=== PATIENT | male | born 1990 | race African-American/Black ===

== ENCOUNTER 2018-07-05 20:06 | Emergency (ER) | payer OTHER ==
[2018-07-05] MEDS ORDERED: KETOROLAC 30 MG/ML VIAL (J1885) As Ordered (22:17)
[2018-07-05] MEDS: KETOROLAC 60 MG/2 ML VIAL (J1885) IM (22:21)
== END 2018-07-05 22:36 | disposition home or self-care (01) ==
LOC: M ED 20:06
DX: S80.11XA Contusion of right lower leg, initial encounter (principal); W19.XXXA Unspecified fall, initial encounter; Y92.830 Public park as the place of occurrence of the external cause; Z87.828 Personal history of other (healed) physical injury and trauma
CPT/HCPCS: J1885

== ENCOUNTER 2018-07-12 14:12 | Emergency (ER) | payer OTHER | END 2018-07-12 16:15 | disposition home or self-care (01) | LOC: M ED 14:12 | DX: S62.307A Unspecified fracture of fifth metacarpal bone, left hand, initial encounter for closed fracture (principal); W18.39XA Other fall on same level, initial encounter; Y92.018 Other place in single-family (private) house as the place of occurrence of the external cause | CPT/HCPCS: 73130 ==

== ENCOUNTER 2019-01-13 10:06 | Emergency (ER) | payer OTHER ==
[~2019-01-13] VITALS: Ht 177.8 cm; Wt 86.4 kg
[~2019-01-13 10:06] MED LIST: IBUP-1022 PO
[2019-01-13 10:15] VITALS: BP 128/79
--- NOTE | 2019-01-13 10:57 | REP ---
Clinical: Trauma. Technique: AP, lateral, bilateral oblique and sunrise views of the right knee. Comparison: 07/05/2018. Findings: Osseous structures, joint spaces, and surrounding soft tissues are relatively normal and stable. There is no evidence for acute fracture or dislocation. 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 Small calcification is also identified along the medial femoral condyle on frontal radiograph which remain stable. Impression: Chronic stable changes possibly related to old injuries. No acute fracture dislocation. Electronically Signed by Jose Cruz Hernandes MD 01/13/2019 10:49 A
== END 2019-01-13 12:15 | disposition home or self-care (01) ==
LOC: M ED 10:06
DX: S80.01XA Contusion of right knee, initial encounter (principal); V49.49XA Driver injured in collision with other motor vehicles in traffic accident, initial encounter; Y92.410 Unspecified street and highway as the place of occurrence of the external cause

== ENCOUNTER → 2020-09-06 | Outpatient (CLI) | payer BC ==
[2020-09-06 17:39] LABS: HIV 1&2 SCREEN CENTAUR NEGATIVE (NEGATIVE)
[2020-09-10 13:11] LABS: HSV IgM TYPES 1&2 <0.91 Ratio (0.00-0.90)
== END ==
LOC: M WUC 13:29
PROVIDERS: ATTEND Physician Assistant
DX: B00.9 Herpesviral infection, unspecified (principal)

== ENCOUNTER → 2020-12-26 | Outpatient (REF) | payer BC ==
[2020-12-28 20:07] LABS: HSV IgM TYPES 1&2 <0.91 Ratio (0.00-0.90); HSV TYPE II IgG SPECIFIC 2.38 index (0.00-0.90)
== END ==
LOC: M LAB REF 16:22
PROVIDERS: ATTEND Physician Assistant Medical
DX: Z72.51 High risk heterosexual behavior (principal)

== ENCOUNTER → 2021-02-05 | Outpatient (CLI) | payer OTHER ==
--- NOTE | 2021-02-05 15:10 | REP ---
INDICATION: PAIN. COMPARISON: None. TECHNIQUE: Five views. FINDINGS: Five views of the right hand demonstrate normal bones, joints, and soft tissues. No fracture or subluxation is seen. No opaque foreign body noted. IMPRESSION: Negative right hand series. <Electronically signed by Adalberto Manriquez > 02/05/21 [id number]
== END ==
LOC: M WUC 11:27
PROVIDERS: ATTEND Physician Assistant Medical
DX: M79.641 Pain in right hand (principal)

== ENCOUNTER → 2021-11-17 | Outpatient (REF) | payer OTHER ==
[2021-11-17 13:05] LABS: APPEARANCE, URINE CLEAR (CLEAR); BACTERIA, URINE AUTO NEGATIVE (NEGATIVE); BILIRUBIN, URINE AUTO NEGATIVE (NEGATIVE); BLOOD, URINE BLOOD NEGATIVE (NEGATIVE); COLOR, URINE YELLOW (YELLOW); GLUCOSE, URINE (UA) AUTO NEGATIVE (NEGATIVE); KETONE, URINE AUTO NEGATIVE (NEGATIVE); LEUKOCYTE ESTERASE, URINE AUTO NEGATIVE (NEGATIVE); MUCUS, URINE SMALL (NEGATIVE); NITRITE, URINE AUTO NEGATIVE (NEGATIVE); PROTEIN, URINE AUTO NEGATIVE (NEGATIVE); RBC, URINE AUTO 0 /HPF (0-3); SPECIFIC GRAVITY URINE AUTO 1.023 (1.002-1.035); SQUAMOUS EPITHELIAL CELL UR AU 0 /HPF (0-6); UROBILINOGEN, URINE AUTO 0.2 mg/dL (0.0-2.0); WBC, URINE AUTO 1 /HPF (0-3)
[2021-11-17 14:28] LABS: GC DNA AMPLIFICATION NEGATIVE (NEGATIVE)
== END ==
LOC: M LAB REF 11:48
PROVIDERS: ATTEND Physician Assistant Medical
DX: R30.0 Dysuria (principal)

== ENCOUNTER 2022-04-02 12:11 | Emergency (ER) | payer OTHER ==
[~2022-04-02] VITALS: Ht 180.3 cm; Wt 95.5 kg
[2022-04-02 12:12] VITALS: BP 111/75
[2022-04-02] MEDS ORDERED: IBUP200T46 PO (12:22)
[2022-04-02] MEDS ORDERED: VALA500T5 (12:22)
== END 2022-04-02 13:40 | disposition left against medical advice (07) ==
LOC: M ED 12:11
DX: Z53.21 Procedure and treatment not carried out due to patient leaving prior to being seen by health care provider (principal)

== ENCOUNTER → 2025-09-03 | Outpatient (REF) | payer OTHER ==
[~2025-09-03] MED LIST changes: -IBUP-1022 PO; +IBUP200T46 PO; +IBUP600T42 PO; +VALA500T5
[2025-09-03 15:24] LABS: Trichomonas vaginalis (AMP) NOT DETECTED (NEGATIVE)
[2025-09-03 15:47] LABS: GC DNA AMPLIFICATION NEGATIVE (NEGATIVE)
== END ==
LOC: M LAB REF 13:38
PROVIDERS: ATTEND Physician Assistant Medical
DX: R30.0 Dysuria (principal)